=== PATIENT | female | born 1980 | race Caucasian/White ===

== ENCOUNTER 2024-07-07 21:15 | Inpatient (IN) | payer OTHER ==
[2024-07-07 21:46] VITALS: BMI 31.1
[2024-07-07 23:22] LABS: BASO % 0.6 % (0-2.0); EOS % 4.8 % (0-4.5); HEMATOCRIT 32.1 % (32.4-45.2); HEMOGLOBIN 10.8 GM/dL (10.7-15.3); LYMPH % 22.4 % (8-40); MCH 30.3 pg (25.7-33.7); MCHC 33.7 g/dl (32.0-36.0); MONO % 14.9 % (3.8-10.2); NEUT % 57.3 % (42.8-82.8); PLATELET COUNT 41 10^3/uL (134-434); RBC 3.57 M/mm3 (3.60-5.2); RDW 16.3 % (11.6-15.6)
[2024-07-07 23:31] LABS: WHITE BLOOD COUNT 1.7 K/mm3 (4.0-10.0)
[2024-07-07 23:40] LABS: POTASSIUM 4.1 mmol/L (3.5-5.1)
[2024-07-07 23:43] LABS: CALCIUM 8.3 mg/dL (8.5-10.1)
[2024-07-07 23:44] LABS: BLOOD UREA NITROGEN 14.6 mg/dL (7-18); MAGNESIUM 1.9 mg/dL (1.8-2.4)
[2024-07-07 23:47] LABS: CREATININE 0.6 mg/dL (0.55-1.3); PHOSPHOROUS 4.2 mg/dL (2.5-4.9)
[2024-07-07 23:52] LABS: N-TERMINAL BNP 84.1 pg/ml (5-125)
[2024-07-08 00:06] LABS: ANISOCYTOSIS 2+; MACROCYTOSIS 0; OVALOCYTE 1+; TEAR DROP CELLS 1+
[2024-07-08 00:38] LABS: EPI CELLS 10 /uL (0-25.1); HYALINE CASTS 0 /uL (0-3.1); URINE APPEARANCE CLEAR; URINE BACTERIA 82 /uL (0-1359); URINE BILIRUBIN NEGATIVE (NEGATIVE); URINE COLOR YELLOW; URINE GLUCOSE (UA) NEGATIVE (NEGATIVE); URINE KETONE NEGATIVE (NEGATIVE); URINE LEUK ESTERASE TRACE (NEGATIVE); URINE NITRITE NEGATIVE (NEGATIVE); URINE PROTEIN NEGATIVE (NEGATIVE); URINE RBC 7 /uL (0-23.9); URINE WBC 15 /uL (0-25.8)
[2024-07-08] MEDS ORDERED: PIPERACILLIN/TAZOB 3.375 GM 3.375 GM/50 ML BAG IVPB ONE ×2 (03:38→09:41)
[2024-07-08] MEDS ORDERED: VANCOMYCIN 1 GRAM (PRE-DOCKED) 1,000 MG/250 ML BAG IVPB ONE (03:38)
[2024-07-08] MEDS: PIPERACILLIN/TAZOB 3.375 GM 3.375 GM in DEXTROSE 5%-WATER - 50 ML IVPB SCH ×3 (04:00→23:11)
[2024-07-08] MEDS: VANCOMYCIN 1,000 MG in DEXTROSE 5%-WATER - 250 ML IVPB SCH ×2 (04:00→23:10)
[2024-07-08] MEDS ORDERED: PIPERACILLIN/TAZOB 3.375 GM 3.375 GM in DEXTROSE 5%-WATER - 50 ML IVPB SCH (05:00)
[2024-07-08] MEDS ORDERED: ACETAMINOPHEN INJECTION 100 ML IVPB ONE (05:25)
[2024-07-08] MEDS: SODIUM CHLORIDE 0.9% 500 ML INFUS.BAG IV ONE (05:31)
[2024-07-08] MEDS: morphine CARPU-JECT 4 MG/1 ML DISP.SYRIN IVPUSH ONE (05:31)
[2024-07-08] MEDS ORDERED: morphine SULFATE 4 MG/ML VIAL ONE (05:32)
[2024-07-08] MEDS: VANCOMYCIN/WATER FOR INJ (PEG) 1,000 MG/200 ML BAG IVPB SCH (06:13)
[2024-07-08] MEDS: VANCOMYCIN 1 GRAM (PRE-DOCKED) 1,000 MG/250 ML BAG IVPB SCH (06:25)
[2024-07-08] MEDS ORDERED: VANCOMYCIN/WATER FOR INJ (PEG) 1,000 MG/200 ML BAG IVPB SCH (10:00)
[2024-07-08] MEDS ORDERED: methaDONE HCL 40 MG DISPERSABLE TABLET ONE (10:34)
[2024-07-08] MEDS: methaDONE HCL 40 MG DISPERSABLE TABLET PO ONE (10:48)
[2024-07-08] MEDS: NICOTINE 7 MG/24 HOURS TOPICAL PATCH TD SCH (10:49)
[2024-07-08] MEDS ORDERED: CEFEPIME 1 GM in DEXTROSE 5%-WATER 100 ML IVPB SCH (12:10)
[2024-07-08 12:44] LABS: BASO % 0.5 % (0-2.0); EOS % 4.1 % (0-4.5); LYMPH % 15.3 % (8-40); MCH 29.9 pg (25.7-33.7); MCHC 33.4 g/dl (32.0-36.0); MEAN CELL VOLUME 89.3 fl (80-96); MEAN PLT VOLUME 9.7 fl (7.5-11.1); MONO % 10.6 % (3.8-10.2); NEUT % 69.5 % (42.8-82.8); RBC 3.37 M/mm3 (3.60-5.2); RDW 16.5 % (11.6-15.6)
[2024-07-08 12:53] LABS: INR 1.26 (0.83-1.09); PROTHROMBIN TIME (PATIENT) 14.1 SEC (9.7-13.0)
[2024-07-08 12:55] LABS: PLATELET COUNT 36 10^3/uL (134-434); WHITE BLOOD COUNT 1.8 K/mm3 (4.0-10.0)
[2024-07-08 13:02] LABS: POTASSIUM 3.8 mmol/L (3.5-5.1)
[2024-07-08 13:07] LABS: BLOOD UREA NITROGEN 11.6 mg/dL (7-18); CALCIUM 8.3 mg/dL (8.5-10.1)
[2024-07-08 13:08] LABS: ALBUMIN 2.6 g/dl (3.4-5.0); MAGNESIUM 1.9 mg/dL (1.8-2.4)
[2024-07-08 13:11] LABS: CREATININE 0.4 mg/dL (0.55-1.3); PHOSPHOROUS 4.5 mg/dL (2.5-4.9)
[2024-07-08 13:12] LABS: BILIRUBIN,TOTAL 1.3 mg/dL (0.2-1); TOT PROT 6.2 g/dl (6.4-8.2)
[2024-07-08 13:35] LABS: ERYTHROCYTE SEDIMENTATION RATE 25 mm/hr (0-20)
[2024-07-08 14:12] LABS: PLATELET ESTIMATE DECREASED
[2024-07-08] MEDS ORDERED: ALPRAZolam 2 MG TABLET PO SCH (14:45)
[2024-07-08] MEDS ORDERED: GABAPENTIN 400 MG CAPSULE ONE (14:59)
[2024-07-08] MEDS ORDERED: ALPRAZolam 1 MG TABLET ONE (14:59)
[2024-07-08] MEDS: ALPRAZolam 1 MG TABLET PO SCH (15:12)
[2024-07-08] MEDS: GABAPENTIN 400 MG CAPSULE PO SCH (15:12)
[2024-07-08 16:47] LABS: HIV INTERPRETATION NEGATIVE (NEGATIVE)
[2024-07-08] MEDS: NYSTATIN 100,000 UNIT/GM TOPICAL CREAM 15 GM TUBE TP SCH (18:05)
[2024-07-08] MEDS: ENOXAPARIN NA (PORCINE) 40 MG/0.4 ML DISP.SYRIN SQ SCH (22:00)
[2024-07-08] MEDS: CEFEPIME 1 GM in DEXTROSE 5%-WATER 100 ML IVPB SCH (22:28)
[2024-07-08] MEDS: CEFEPIME HCL 1 GM VIAL (RESTRICTED TO ID) IVPB SCH (23:11)
[2024-07-09] MEDS: VANCOMYCIN/WATER FOR INJ (PEG) 1,000 MG/200 ML BAG IVPB SCH (00:12)
[2024-07-09 09:56] LABS: HEMATOCRIT 27.6 % (32.4-45.2); HEMOGLOBIN 9.3 GM/dL (10.7-15.3); MCH 30.6 pg (25.7-33.7); MCHC 33.8 g/dl (32.0-36.0); MEAN CELL VOLUME 90.5 fl (80-96); MEAN PLT VOLUME 10.4 fl (7.5-11.1); RBC 3.05 M/mm3 (3.60-5.2); RDW 16.1 % (11.6-15.6)
[2024-07-09 10:09] LABS: PLATELET COUNT 35 10^3/uL (134-434); WHITE BLOOD COUNT 1.6 K/mm3 (4.0-10.0)
[2024-07-09 10:21] LABS: ANISOCYTOSIS 0; MACROCYTOSIS 0
[2024-07-09 10:36] LABS: PLATELET ESTIMATE DECREASED
[2024-07-09] MEDS: KETOCONAZOLE 2 % SHAMPOO 120 ML BOTTLE TP SCH (11:33)
[2024-07-09] MEDS: methaDONE HCL 40 MG DISPERSABLE TABLET PO ONE (11:34)
[2024-07-09] MEDS: PERMETHRIN (NIX CREAM SCALP RINSE) 59 ML 1% BOTTLE TP ONE (18:46)
[2024-07-10] MEDS: methaDONE HCL 40 MG DISPERSABLE TABLET PO SCH (05:19)
[2024-07-10 08:42] LABS: HEMATOCRIT 27.2 % (32.4-45.2); HEMOGLOBIN 9.1 GM/dL (10.7-15.3); INR 1.23 (0.83-1.09); MCH 30.2 pg (25.7-33.7); MCHC 33.6 g/dl (32.0-36.0); MEAN CELL VOLUME 89.9 fl (80-96); MEAN PLT VOLUME 10.1 fl (7.5-11.1); PLATELET COUNT 37 10^3/uL (134-434); PROTHROMBIN TIME (PATIENT) 13.8 SEC (9.7-13.0); RBC 3.03 M/mm3 (3.60-5.2); RDW 15.8 % (11.6-15.6)
[2024-07-10 08:55] LABS: WHITE BLOOD COUNT 1.3 K/mm3 (4.0-10.0)
[2024-07-10 09:02] LABS: POTASSIUM 3.9 mmol/L (3.5-5.1)
[2024-07-10 09:07] LABS: ALBUMIN 2.5 g/dl (3.4-5.0); BLOOD UREA NITROGEN 15.4 mg/dL (7-18); CALCIUM 7.6 mg/dL (8.5-10.1)
[2024-07-10 09:08] LABS: MAGNESIUM 1.9 mg/dL (1.8-2.4)
[2024-07-10 09:11] LABS: BILIRUBIN,TOTAL 0.8 mg/dL (0.2-1); CREATININE 0.5 mg/dL (0.55-1.3)
[2024-07-10 09:12] LABS: TOT PROT 5.9 g/dl (6.4-8.2)
[2024-07-10 09:44] LABS: ANISOCYTOSIS 0; MACROCYTOSIS 0
[2024-07-10 09:46] LABS: PLATELET ESTIMATE DECREASED
[2024-07-10 18:07] LABS: FREE KAPPA,SERUM 46.1 mg/L (3.3-19.4)
[2024-07-11 06:53] LABS: HEMATOCRIT 26.8 % (32.4-45.2); HEMOGLOBIN 9.1 GM/dL (10.7-15.3); MCH 30.8 pg (25.7-33.7); MCHC 33.9 g/dl (32.0-36.0); MEAN CELL VOLUME 90.7 fl (80-96); MEAN PLT VOLUME 9.3 fl (7.5-11.1); RBC 2.95 M/mm3 (3.60-5.2); RDW 15.8 % (11.6-15.6)
[2024-07-11 07:04] LABS: POTASSIUM 3.6 mmol/L (3.5-5.1)
[2024-07-11 07:07] LABS: CALCIUM 7.8 mg/dL (8.5-10.1)
[2024-07-11 07:08] LABS: ALBUMIN 2.6 g/dl (3.4-5.0); BLOOD UREA NITROGEN 13.7 mg/dL (7-18); MAGNESIUM 1.9 mg/dL (1.8-2.4)
[2024-07-11 07:11] LABS: CREATININE 0.4 mg/dL (0.55-1.3)
[2024-07-11 07:12] LABS: BILIRUBIN,TOTAL 0.8 mg/dL (0.2-1); TOT PROT 6.1 g/dl (6.4-8.2)
[2024-07-11 07:17] LABS: WHITE BLOOD COUNT 1.4 K/mm3 (4.0-10.0)
[2024-07-11 07:18] LABS: PLATELET COUNT 36 10^3/uL (134-434)
[2024-07-11 08:55] LABS: ANISOCYTOSIS 0; MACROCYTOSIS 0
[2024-07-12 08:52] LABS: HEMOGLOBIN 9.8 GM/dL (10.7-15.3); MCH 30.4 pg (25.7-33.7); MCHC 33.7 g/dl (32.0-36.0); MEAN CELL VOLUME 90.2 fl (80-96); MEAN PLT VOLUME 9.7 fl (7.5-11.1); PLATELET COUNT 42 10^3/uL (134-434); RBC 3.21 M/mm3 (3.60-5.2); RDW 16.1 % (11.6-15.6)
[2024-07-12 09:02] LABS: WHITE BLOOD COUNT 1.7 K/mm3 (4.0-10.0)
[2024-07-12 09:12] LABS: POTASSIUM 3.7 mmol/L (3.5-5.1)
[2024-07-12 09:14] LABS: ALBUMIN 2.8 g/dl (3.4-5.0)
[2024-07-12 09:15] LABS: BLOOD UREA NITROGEN 11.6 mg/dL (7-18); CALCIUM 8.1 mg/dL (8.5-10.1); MAGNESIUM 1.9 mg/dL (1.8-2.4)
[2024-07-12 09:18] LABS: CREATININE 0.4 mg/dL (0.55-1.3)
[2024-07-12 09:20] LABS: TOT PROT 6.6 g/dl (6.4-8.2)
[2024-07-12 09:50] LABS: ANISOCYTOSIS 0; HELMET CELLS 0; HOWELL-JOLLY BODIES 0; MACROCYTOSIS 0; OVALOCYTE 0; ROULEAU 0; SICKELED CELLS 0; TARGET CELLS 0; TEAR DROP CELLS 0; TOXIC GRANULATION 0
[2024-07-13 09:19] LABS: BASO % 0.1 % (0-2.0); EOS % 3.4 % (0-4.5); HEMATOCRIT 30.1 % (32.4-45.2); HEMOGLOBIN 10.1 GM/dL (10.7-15.3); LYMPH % 16.5 % (8-40); MCH 30.2 pg (25.7-33.7); MCHC 33.5 g/dl (32.0-36.0); MEAN CELL VOLUME 90.2 fl (80-96); MEAN PLT VOLUME 10.2 fl (7.5-11.1); MONO % 10.6 % (3.8-10.2); NEUT % 69.4 % (42.8-82.8); PLATELET COUNT 44 10^3/uL (134-434); RBC 3.34 M/mm3 (3.60-5.2); RDW 16.4 % (11.6-15.6); WHITE BLOOD COUNT 2.4 K/mm3 (4.0-10.0)
[2024-07-13 09:40] LABS: POTASSIUM 3.6 mmol/L (3.5-5.1)
[2024-07-13 09:44] LABS: ALBUMIN 2.9 g/dl (3.4-5.0); BLOOD UREA NITROGEN 11.4 mg/dL (7-18)
[2024-07-13 09:45] LABS: CALCIUM 8.1 mg/dL (8.5-10.1)
[2024-07-13 09:48] LABS: CREATININE 0.4 mg/dL (0.55-1.3)
[2024-07-13 09:49] LABS: BILIRUBIN,TOTAL 1.5 mg/dL (0.2-1); TOT PROT 6.7 g/dl (6.4-8.2)
[2024-07-13] MEDS: ALPRAZolam 1 MG TABLET PO SCH ×2 (15:15→21:25)
[2024-07-13 18:11] LABS: IG A QN SERUM. 272 mg/dL (87-352)
[2024-07-14] MEDS: ALPRAZolam 1 MG TABLET PO SCH (13:42)
[2024-07-14 15:09] LABS: IMMUNOGLOBULIN D < 1.30 mg/dL (<14.11)
[2024-07-15 08:28] LABS: HEMATOCRIT 26.1 % (32.4-45.2); MCH 30.5 pg (25.7-33.7); MCHC 34.4 g/dl (32.0-36.0); MEAN CELL VOLUME 88.6 fl (80-96); MEAN PLT VOLUME 9.6 fl (7.5-11.1); RBC 2.95 M/mm3 (3.60-5.2)
[2024-07-15 08:51] LABS: POTASSIUM 3.9 mmol/L (3.5-5.1)
[2024-07-15 08:53] LABS: BLOOD UREA NITROGEN 11.2 mg/dL (7-18)
[2024-07-15 08:55] LABS: CREATININE 0.5 mg/dL (0.55-1.3)
[2024-07-15 09:16] LABS: WHITE BLOOD COUNT 1.5 K/mm3 (4.0-10.0)
[2024-07-15 09:17] LABS: PLATELET COUNT 36 10^3/uL (134-434)
[2024-07-15 10:08] LABS: PLATELET ESTIMATE DECREASED
[2024-07-15] MEDS: FAMOTIDINE 10 MG TABLET PO SCH (17:18)
[2024-07-15] MEDS: HYDROCORTISONE 5 MG TABLET PO SCH (22:15)
[2024-07-16 09:23] LABS: POTASSIUM 4.2 mmol/L (3.5-5.1)
[2024-07-16 09:25] LABS: CALCIUM 8.1 mg/dL (8.5-10.1)
[2024-07-16 09:26] LABS: ALBUMIN 2.8 g/dl (3.4-5.0); BLOOD UREA NITROGEN 12.4 mg/dL (7-18)
[2024-07-16 09:29] LABS: CREATININE 0.5 mg/dL (0.55-1.3); HEMATOCRIT 28.3 % (32.4-45.2); HEMOGLOBIN 9.5 GM/dL (10.7-15.3); MCHC 33.4 g/dl (32.0-36.0); MEAN CELL VOLUME 89.8 fl (80-96); MEAN PLT VOLUME 10.1 fl (7.5-11.1); PLATELET COUNT 38 10^3/uL (134-434); RBC 3.15 M/mm3 (3.60-5.2); RDW 16.3 % (11.6-15.6)
[2024-07-16 09:30] LABS: BILIRUBIN,TOTAL 1.2 mg/dL (0.2-1); TOT PROT 6.8 g/dl (6.4-8.2)
[2024-07-16 09:34] LABS: WHITE BLOOD COUNT 1.8 K/mm3 (4.0-10.0)
[2024-07-16] MEDS: HYDROCORTISONE 10 MG TABLET PO SCH (10:28)
[2024-07-16 11:02] LABS: ANISOCYTOSIS 0; HELMET CELLS 0; HOWELL-JOLLY BODIES 0; MACROCYTOSIS 0; OVALOCYTE 0; ROULEAU 0; SICKELED CELLS 0; TARGET CELLS 0; TEAR DROP CELLS 0; TOXIC GRANULATION 0
[2024-07-16] MEDS: GABAPENTIN 400 MG CAPSULE PO SCH (21:29)
[2024-07-17 06:54] VITALS: RESP 18
[2024-07-17 10:00] VITALS: BP 116/66; PULSE 75; TEMP 98.1
[2024-07-17] MEDS: PERMETHRIN (NIX CREAM SCALP RINSE) 59 ML 1% BOTTLE TP ONE (14:14)
[2024-07-17] MEDS: FUROSEMIDE 20 MG TABLET (FP) PO SCH (14:14)
== END 2024-07-17 16:33 | disposition other institution (70) | DRG 660 ==
LOC: JER 21:15 → JERBED 07-08 00:21 → J7W 07-08 18:19
PROVIDERS: ADMIT Internal Medicine; ATTEND Nurse Practitioner
DX: D61.818 Other pancytopenia (principal); B37.89 Other sites of candidiasis; L97.919 Non-pressure chronic ulcer of unspecified part of right lower leg with unspecified severity; L97.929 Non-pressure chronic ulcer of unspecified part of left lower leg with unspecified severity; F11.20 Opioid dependence, uncomplicated; E27.40 Unspecified adrenocortical insufficiency; B18.2 Chronic viral hepatitis C; K74.60 Unspecified cirrhosis of liver; B85.0 Pediculosis due to Pediculus humanus capitis; R16.1 Splenomegaly, not elsewhere classified; R79.89 Other specified abnormal findings of blood chemistry; F19.10 Other psychoactive substance abuse, uncomplicated; I87.8 Other specified disorders of veins
CPT/HCPCS: 0241U-QW; 36415; 71046-TC-FY; 76705-TC; 80048; 80053; 80305; 81003; 81025; 82595; 82784; 82785; 83735; 83880; 83883; 84100; 84155; 84165; 84484; 85025; 85610; 85651; 86140; 86334; 86618; 86704; 86708; 86803; 87040; 87340; 87389; 87517; 87522; 93005; 93010; 93970-TC; 99285-25; G0480

== ENCOUNTER 2024-07-17 18:46 | Inpatient (IN) | payer OTHER ==
[2024-07-17 19:45] VITALS: BMI 33.6
[2024-07-17] MEDS ORDERED: BENZOCAINE/MENTHOL (CHLORASEPTIC ) LOZENGE MM PRN (19:48)
[2024-07-17] MEDS ORDERED: NALOXONE HCL 0.4 MG/ML VIAL IVPUSH PRN (19:48)
[2024-07-17] MEDS ORDERED: POLYETHYLENE GLYCOL (HEALTHYLAX) 3350 17 GM PACKET PO PRN (19:48)
[2024-07-17] MEDS ORDERED: P-EPHED 60MG/TRIPROLIDI 2.5MG TABLET PO PRN (19:48)
[2024-07-17] MEDS ORDERED: BENZONATATE 200 MG CAPSULE PO PRN (19:48)
[2024-07-17] MEDS ORDERED: LOPERAMIDE HCL 2 MG CAPSULE PO PRN (19:48)
[2024-07-17] MEDS ORDERED: NICOTINE POLACRILEX 2 MG GUM BUC PRN (19:48)
[2024-07-17] MEDS ORDERED: guaiFENesin 600 MG TABLET.ER (FP) PO PRN (19:48)
[2024-07-17] MEDS ORDERED: NALOXONE (NARCAN) HCL 4 MG/0.1 ML SPRAY NS PRN (19:48)
[2024-07-17] MEDS ORDERED: NICOTINE POLACRILEX 2 MG LOZENGE BC PRN (19:48)
[2024-07-17] MEDS ORDERED: MAG HYDROX/AL HYDROX/SIMETH 30 ML UNIT-DOSE CUP PO PRN (19:48)
[2024-07-17] MEDS: levETIRAcetam 500 MG TABLET (FP) PO SCH (21:02)
[2024-07-17] MEDS: THIAMINE 100 MG TABLET PO SCH (21:02)
[2024-07-17] MEDS: MELATONIN 5 MG TABLETS PO SCH (21:02)
[2024-07-17] MEDS: NYSTATIN 100,000 UNIT/GM TOPICAL CREAM 15 GM TUBE TP SCH (23:43)
[2024-07-18] MEDS: methaDONE HCL 40 MG DISPERSABLE TABLET PO SCH (10:00)
[2024-07-18] MEDS: PRENATAL VITAMINS W/ FOLIC ACID TABLET (FP) PO SCH (10:00)
[2024-07-18] MEDS: FAMOTIDINE 10 MG TABLET PO SCH (11:01)
[2024-07-18] MEDS: HYDROCORTISONE 10 MG TABLET PO SCH (11:01)
[2024-07-18] MEDS: clonazePAM 1 MG ODT TABLETS SL SCH (13:29)
[2024-07-18] MEDS: HYDROCORTISONE 5 MG TABLET PO SCH (18:46)
[2024-07-20 11:02] LABS: HEMATOCRIT 27.1 % (32.4-45.2); MCH 30.1 pg (25.7-33.7); MCHC 33.1 g/dl (32.0-36.0); MEAN CELL VOLUME 90.8 fl (80-96); MEAN PLT VOLUME 10.3 fl (7.5-11.1); PLATELET COUNT 41 10^3/uL (134-434); RBC 2.99 M/mm3 (3.60-5.2)
[2024-07-20 11:06] LABS: POTASSIUM 4.1 mmol/L (3.5-5.1)
[2024-07-20 11:08] LABS: CALCIUM 8.3 mg/dL (8.5-10.1)
[2024-07-20 11:09] LABS: BLOOD UREA NITROGEN 10.6 mg/dL (7-18)
[2024-07-20 11:12] LABS: CREATININE 0.5 mg/dL (0.55-1.3)
[2024-07-20 11:15] LABS: WHITE BLOOD COUNT 1.9 K/mm3 (4.0-10.0)
[2024-07-20 11:53] LABS: ANISOCYTOSIS 0; MACROCYTOSIS 0
[2024-07-20] MEDS ORDERED: FUROSEMIDE 20 MG TABLET (FP) PO SCH (15:45)
[2024-07-20] MEDS ORDERED: SPIRONOLACTONE 100 MG PO SCH (15:45)
[2024-07-20] MEDS: FUROSEMIDE 20 MG TABLET (FP) PO SCH (16:03)
[2024-07-20] MEDS: SPIRONOLACTONE 25 MG TABLET PO SCH (16:06)
[2024-07-21] MEDS ORDERED: IBUPROFEN 400 MG TABLET (FP) PO PRN (15:55)
[2024-07-21] MEDS: MINERAL OIL/PET HY-PHL TOPICAL OINTMENT 454 GM JAR TP SCH (17:44)
[2024-07-21] MEDS: METHYL SALICYLATE/MENTHOL 30 GM TUBE TP SCH (17:44)
[2024-07-22] MEDS: PERMETHRIN (NIX CREAM SCALP RINSE) 59 ML 1% BOTTLE TP ONE (09:58)
[2024-07-22 11:22] LABS: INR 1.37 (0.83-1.09); PROTHROMBIN TIME (PATIENT) 15.3 SEC (9.7-13.0)
[2024-07-24] MEDS: HYDROCORTISONE 5 MG TABLET PO SCH (10:08)
[2024-07-24] MEDS: MAGNESIUM HYDROX 2400MG/30ML ORAL SUSPENSION 30 ML CUP PO PRN (18:52)
[2024-07-28] MEDS: IBUPROFEN 400 MG TABLET (FP) PO PRN (07:11)
[2024-07-28 11:35] LABS: BASO % 0.5 % (0-2.0); EOS % 4.5 % (0-4.5); HEMOGLOBIN 11.4 GM/dL (10.7-15.3); LYMPH % 15.5 % (8-40); MCH 30.2 pg (25.7-33.7); MCHC 33.7 g/dl (32.0-36.0); MEAN CELL VOLUME 89.8 fl (80-96); MEAN PLT VOLUME 10.1 fl (7.5-11.1); MONO % 10.3 % (3.8-10.2); NEUT % 69.2 % (42.8-82.8); PLATELET COUNT 56 10^3/uL (134-434); RBC 3.79 M/mm3 (3.60-5.2); RDW 16.1 % (11.6-15.6); WHITE BLOOD COUNT 3.1 K/mm3 (4.0-10.0)
[2024-07-28 11:38] LABS: POTASSIUM 4.1 mmol/L (3.5-5.1)
[2024-07-28 11:49] LABS: ALBUMIN 3.1 g/dl (3.4-5.0); BLOOD UREA NITROGEN 15.5 mg/dL (7-18)
[2024-07-28 11:50] LABS: CALCIUM 8.2 mg/dL (8.5-10.1)
[2024-07-28 11:53] LABS: CREATININE 0.6 mg/dL (0.55-1.3)
[2024-07-28 11:55] LABS: BILIRUBIN,TOTAL 1.1 mg/dL (0.2-1); TOT PROT 7.1 g/dl (6.4-8.2)
[2024-07-28] MEDS: SUVOREXANT 10 MG TABLET PO PRN (21:40)
[2024-07-30] MEDS: clonazePAM 0.5 MG ODT TABLETS SL SCH (10:22)
[2024-07-30 16:38] VITALS: BP 123/73; PULSE 94; RESP 16; TEMP 97.5
== END 2024-07-30 16:40 | disposition short-term general hospital (02) | DRG 772 ==
LOC: YASAS 18:46 → Y5N 20:09 → Y3NR 23:11 → Y5N 07-20 13:19
PROVIDERS: ADMIT Psychiatry & Neurology Pain Medicine; ATTEND Psychiatry & Neurology Pain Medicine
PROC: HZ42ZZZ Group Counseling for Substance Abuse Treatment, Cognitive-Behavioral (ICD-10-PCS; principal; 2024-07-17)
DX: F11.20 Opioid dependence, uncomplicated (principal); F13.20 Sedative, hypnotic or anxiolytic dependence, uncomplicated; F14.20 Cocaine dependence, uncomplicated; F19.282 Other psychoactive substance dependence with psychoactive substance-induced sleep disorder; F19.280 Other psychoactive substance dependence with psychoactive substance-induced anxiety disorder; F19.24 Other psychoactive substance dependence with psychoactive substance-induced mood disorder; I83.009 Varicose veins of unspecified lower extremity with ulcer of unspecified site; D61.818 Other pancytopenia; E27.40 Unspecified adrenocortical insufficiency; L03.116 Cellulitis of left lower limb; B35.0 Tinea barbae and tinea capitis; Z62.810 Personal history of physical and sexual abuse in childhood; Z63.8 Other specified problems related to primary support group
CPT/HCPCS: 36415; 80048; 80053; 80305; 80307; 82652; 83735; 85025; 85610; 87811

== ENCOUNTER 2024-07-30 17:06 | Inpatient (IN) | payer OTHER ==
[2024-07-30 17:17] VITALS: BMI 29.2
[2024-07-30] MEDS ORDERED: VANCOMYCIN 1 GRAM (PRE-DOCKED) 1,000 MG/250 ML BAG IVPB ONE (19:57)
[2024-07-30] MEDS ORDERED: morphine SULFATE 4 MG/ML VIAL ONE ×2 (20:49→22:00)
[2024-07-30] MEDS ORDERED: ACETAMINOPHEN INJECTION 100 ML ONE (20:49)
[2024-07-30] MEDS ORDERED: CEFEPIME 1 GM/100 ML BAG IVPB ONE (20:50)
[2024-07-30] MEDS: morphine CARPU-JECT 4 MG/1 ML DISP.SYRIN IVPUSH ONE ×2 (21:21→22:03)
[2024-07-30] MEDS: VANCOMYCIN 1,000 MG in DEXTROSE 5%-WATER - 250 ML IVPB ONE (21:22)
[2024-07-30] MEDS: SODIUM CHLORIDE 1,000 ML IV STA (21:22)
[2024-07-30] MEDS: ACETAMINOPHEN 1000 MG/100 ML BAG IVPB ONE (21:22)
[2024-07-30 21:40] LABS: HEMATOCRIT 34.3 % (32.4-45.2); HEMOGLOBIN 11.5 GM/dL (10.7-15.3); MCH 29.8 pg (25.7-33.7); MCHC 33.6 g/dl (32.0-36.0); MEAN CELL VOLUME 88.8 fl (80-96); RBC 3.87 M/mm3 (3.60-5.2); RDW 16.3 % (11.6-15.6)
[2024-07-30 21:41] LABS: POTASSIUM 3.8 mmol/L (3.5-5.1)
[2024-07-30 21:43] LABS: ALBUMIN 2.7 g/dl (3.4-5.0); BLOOD UREA NITROGEN 23.8 mg/dL (7-18); CALCIUM 8.2 mg/dL (8.5-10.1); MAGNESIUM 1.8 mg/dL (1.8-2.4)
[2024-07-30 21:46] LABS: CREATININE 0.7 mg/dL (0.55-1.3)
[2024-07-30 21:48] LABS: TOT PROT 6.5 g/dl (6.4-8.2)
[2024-07-30 21:51] LABS: WHITE BLOOD COUNT 1.6 K/mm3 (4.0-10.0)
[2024-07-30 21:57] LABS: BILIRUBIN,TOTAL 3.3 mg/dL (0.2-1)
[2024-07-30 22:34] LABS: ERYTHROCYTE SEDIMENTATION RATE 33 mm/hr (0-20)
[2024-07-30 22:35] LABS: PLATELET COUNT 35 10^3/uL (134-434)
[2024-07-30 22:36] LABS: HIV INTERPRETATION NEGATIVE (NEGATIVE)
[2024-07-30 22:47] LABS: ANISOCYTOSIS 1+; MACROCYTOSIS 0
[2024-07-30] MEDS: CEFEPIME HCL/D5W 1 GM/50 ML BAG IVPB ONE (22:59)
[2024-07-31] MEDS ORDERED: IBUPROFEN 400 MG TABLET (FP) PO ONE (02:34)
[2024-07-31] MEDS ORDERED: KETOROLAC TROMETHAMINE 15 MG/ML VIAL ONE (02:40)
[2024-07-31] MEDS: KETOROLAC TROMETHAMINE 15 MG/ML VIAL IVPUSH ONE (02:43)
[2024-07-31] MEDS: SODIUM CHLORIDE 1,000 ML IV SCH ×4 (07:25→21:59)
[2024-07-31] MEDS ORDERED: VANCOMYCIN 1,000 MG in DEXTROSE 5%-WATER - 250 ML IVPB SCH (08:30)
[2024-07-31] MEDS ORDERED: methaDONE HCL 40 MG DISPERSABLE TABLET ONE (08:30)
[2024-07-31] MEDS: methaDONE HCL 10 MG TABLET PO ONE (08:34)
[2024-07-31] MEDS ORDERED: VANCOMYCIN 1 GRAM (PRE-DOCKED) 1,000 MG/250 ML BAG IVPB ONE (08:36)
[2024-07-31] MEDS: VANCOMYCIN/WATER FOR INJ (PEG) 1,000 MG/200 ML BAG IVPB SCH (09:02)
[2024-07-31] MEDS: HYDROCORTISONE 10 MG TABLET PO SCH ×2 (11:42→23:50)
[2024-07-31 12:21] LABS: HEMATOCRIT 32.9 % (32.4-45.2); MCH 29.7 pg (25.7-33.7); MCHC 33.6 g/dl (32.0-36.0); MEAN CELL VOLUME 88.4 fl (80-96); MEAN PLT VOLUME 9.7 fl (7.5-11.1); RBC 3.72 M/mm3 (3.60-5.2); RDW 16.8 % (11.6-15.6); WHITE BLOOD COUNT 3.3 K/mm3 (4.0-10.0)
[2024-07-31 12:24] LABS: PLATELET COUNT 31 10^3/uL (134-434)
[2024-07-31 12:45] LABS: POTASSIUM 4.4 mmol/L (3.5-5.1)
[2024-07-31 12:48] LABS: ALBUMIN 2.3 g/dl (3.4-5.0); BLOOD UREA NITROGEN 26.1 mg/dL (7-18)
[2024-07-31 12:51] LABS: CREATININE 0.8 mg/dL (0.55-1.3)
[2024-07-31 12:53] LABS: ANISOCYTOSIS 0; BILIRUBIN,TOTAL 2.7 mg/dL (0.2-1); MACROCYTOSIS 0; TOT PROT 5.7 g/dl (6.4-8.2)
[2024-07-31 13:01] LABS: LACTIC ACID 4.5 mmol/L (0.4-2.0)
[2024-07-31 15:27] LABS: BILIRUBIN,DIRECT 1.9 mg/dL (0.0-0.2)
[2024-07-31] MEDS: SODIUM CHLORIDE 500 ML IV STA (16:28)
[2024-07-31] MEDS: CEFEPIME 1 GM in DEXTROSE 5%-WATER 100 ML IVPB SCH (16:28)
[2024-07-31] MEDS: ACETAMINOPHEN 325 MG TABLET (FP) PO PRN (17:55)
[2024-07-31] MEDS ORDERED: CEFEPIME HCL 1 GM VIAL (RESTRICTED TO ID) IVPB SCH (18:00)
[2024-07-31 20:04] LABS: PH,URINE 5.5 (5.0-8.0); URINE APPEARANCE CLOUDY; URINE BILIRUBIN 1+ (NEGATIVE); URINE COLOR DK YELLOW; URINE GLUCOSE (UA) NEGATIVE (NEGATIVE); URINE KETONE NEGATIVE (NEGATIVE); URINE LEUK ESTERASE NEGATIVE (NEGATIVE); URINE NITRITE NEGATIVE (NEGATIVE); URINE PROTEIN TRACE (NEGATIVE)
[2024-07-31] MEDS: RIFAXIMIN 550 MG TABLET PO SCH (21:58)
[2024-07-31] MEDS: clonazePAM 0.5 MG TABLET PO SCH (21:58)
[2024-07-31] MEDS: ZOLPIDEM TARTRATE 5 MG TABLET PO SCH (21:59)
[2024-08-01] MEDS: CEFEPIME HCL 1 GM VIAL (RESTRICTED TO ID) IVPB SCH (01:00)
[2024-08-01] MEDS: methaDONE HCL 40 MG DISPERSABLE TABLET PO SCH (06:15)
[2024-08-01] MEDS: SERTRALINE HCL 50 MG TABLET (FP) PO SCH (09:15)
[2024-08-01] MEDS: VANCOMYCIN/WATER FOR INJ (PEG) 1,000 MG/200 ML BAG IVPB SCH (09:16)
[2024-08-01 10:31] LABS: INR 1.37 (0.83-1.09); PROTHROMBIN TIME (PATIENT) 15.3 SEC (9.7-13.0)
[2024-08-01 10:45] LABS: CALCIUM 7.6 mg/dL (8.5-10.1)
[2024-08-01 10:46] LABS: BLOOD UREA NITROGEN 21.8 mg/dL (7-18)
[2024-08-01 10:49] LABS: CREATININE 0.5 mg/dL (0.55-1.3); LACTIC ACID 2.9 mmol/L (0.4-2.0)
[2024-08-01 10:50] LABS: BILIRUBIN,TOTAL 2.5 mg/dL (0.2-1); TOT PROT 5.3 g/dl (6.4-8.2)
[2024-08-01 10:53] LABS: HEMATOCRIT 30.4 % (32.4-45.2); HEMOGLOBIN 10.3 GM/dL (10.7-15.3); MCHC 33.8 g/dl (32.0-36.0); MEAN CELL VOLUME 88.8 fl (80-96); MEAN PLT VOLUME 10.9 fl (7.5-11.1); PLATELET COUNT 39 10^3/uL (134-434); RBC 3.42 M/mm3 (3.60-5.2); RDW 16.1 % (11.6-15.6); WHITE BLOOD COUNT 4.8 K/mm3 (4.0-10.0)
[2024-08-01 12:14] LABS: ANISOCYTOSIS 0; MACROCYTOSIS 0
[2024-08-01] MEDS: PERMETHRIN 5% TOPICAL CREAM 60 GM TUBE TP ONE (12:22)
[2024-08-01 13:09] LABS: LACTIC ACID 2.2 mmol/L (0.4-2.0)
[2024-08-01] MEDS: CLINDAMYCIN 900 MG PREMIX IVPB 900 MG/50 ML BAG IVPB SCH (19:04)
[2024-08-02] MEDS: MEROPENEM 1 GM in DEXTROSE 5%-WATER 100 ML IVPB SCH (01:13)
[2024-08-02 09:12] LABS: HEMATOCRIT 31.8 % (32.4-45.2); HEMOGLOBIN 10.7 GM/dL (10.7-15.3); MCH 29.2 pg (25.7-33.7); MCHC 33.7 g/dl (32.0-36.0); MEAN CELL VOLUME 86.7 fl (80-96); MEAN PLT VOLUME 10.4 fl (7.5-11.1); PLATELET COUNT 42 10^3/uL (134-434); RBC 3.67 M/mm3 (3.60-5.2); RDW 16.2 % (11.6-15.6); WHITE BLOOD COUNT 9.8 K/mm3 (4.0-10.0)
[2024-08-02 09:34] LABS: CALCIUM 7.4 mg/dL (8.5-10.1)
[2024-08-02 09:35] LABS: ALBUMIN 2.2 g/dl (3.4-5.0)
[2024-08-02 09:38] LABS: CREATININE 0.4 mg/dL (0.55-1.3)
[2024-08-02 09:39] LABS: BILIRUBIN,TOTAL 2.2 mg/dL (0.2-1); TOT PROT 5.5 g/dl (6.4-8.2)
[2024-08-02 10:46] LABS: ANISOCYTOSIS 0; MACROCYTOSIS 0
[2024-08-03 10:30] LABS: HEMATOCRIT 33.2 % (32.4-45.2); HEMOGLOBIN 11.1 GM/dL (10.7-15.3); MCHC 33.4 g/dl (32.0-36.0); MEAN CELL VOLUME 86.8 fl (80-96); MEAN PLT VOLUME 10.4 fl (7.5-11.1); PLATELET COUNT 47 10^3/uL (134-434); RBC 3.83 M/mm3 (3.60-5.2); RDW 16.1 % (11.6-15.6); WHITE BLOOD COUNT 14.1 K/mm3 (4.0-10.0)
[2024-08-03 10:44] LABS: POTASSIUM 3.5 mmol/L (3.5-5.1)
[2024-08-03 10:49] LABS: ALBUMIN 2.2 g/dl (3.4-5.0); BLOOD UREA NITROGEN 11.7 mg/dL (7-18); CALCIUM 7.6 mg/dL (8.5-10.1)
[2024-08-03 10:52] LABS: CREATININE 0.4 mg/dL (0.55-1.3)
[2024-08-03 10:54] LABS: BILIRUBIN,TOTAL 2.1 mg/dL (0.2-1); TOT PROT 5.7 g/dl (6.4-8.2)
[2024-08-03 11:56] LABS: ANISOCYTOSIS 0; MACROCYTOSIS 0
[2024-08-03] MEDS: FUROSEMIDE 40 MG/4 ML INJECTABLE VIAL IVPUSH ONE (17:15)
[2024-08-04] MEDS: TORSEMIDE 20 MG TABLET (FP) PO SCH (15:37)
[2024-08-04] MEDS: POTASSIUM CHLORIDE ORAL LIQUID 20 MEQ/15 ML PO ONE (15:38)
[2024-08-04] MEDS: BACITRACIN ZINC 15 GM TUBE TOPICAL OINTMENT TP SCH (15:38)
[2024-08-05] MEDS: POTASSIUM CHLORIDE ORAL LIQUID 20 MEQ/15 ML PO ONE (13:54)
[2024-08-05] MEDS: FUROSEMIDE 40 MG/4 ML INJECTABLE VIAL IVPUSH ONE (13:54)
[2024-08-06 09:59] LABS: HEMATOCRIT 30.4 % (32.4-45.2); HEMOGLOBIN 10.1 GM/dL (10.7-15.3); MCH 28.8 pg (25.7-33.7); MCHC 33.4 g/dl (32.0-36.0); MEAN CELL VOLUME 86.3 fl (80-96); MEAN PLT VOLUME 10.1 fl (7.5-11.1); PLATELET COUNT 71 10^3/uL (134-434); RBC 3.52 M/mm3 (3.60-5.2); RDW 16.3 % (11.6-15.6); WHITE BLOOD COUNT 6.9 K/mm3 (4.0-10.0)
[2024-08-06 10:24] LABS: POTASSIUM 3.1 mmol/L (3.5-5.1)
[2024-08-06 10:31] LABS: ALBUMIN 2.2 g/dl (3.4-5.0); CALCIUM 7.6 mg/dL (8.5-10.1)
[2024-08-06 10:33] LABS: BLOOD UREA NITROGEN 17.4 mg/dL (7-18); MAGNESIUM 1.7 mg/dL (1.8-2.4)
[2024-08-06 10:35] LABS: BILIRUBIN,TOTAL 1.5 mg/dL (0.2-1); CREATININE 0.4 mg/dL (0.55-1.3); TOT PROT 6.1 g/dl (6.4-8.2)
[2024-08-06 10:54] LABS: ANISOCYTOSIS 0; MACROCYTOSIS 0
[2024-08-06] MEDS: SIMETHICONE 80 MG TAB.CHEW (FP) PO PRN (17:15)
[2024-08-06] MEDS: POTASSIUM CHLORIDE TABS 20 MEQ TABLET.ER (FP) PO ONE (17:17)
[2024-08-06] MEDS: MAGNESIUM OXIDE 400 MG TABLET (FP) PO ONE (17:19)
[2024-08-06] MEDS: POTASSIUM CHLORIDE ORAL LIQUID 20 MEQ/15 ML PO ONE (18:00)
[2024-08-06] MEDS: MICONAZOLE NITRATE 2% VAGINAL CREAM 45 GM TUBE VG SCH (21:35)
[2024-08-07 10:10] LABS: BASO % 0.3 % (0-2.0); EOS % 2.5 % (0-4.5); HEMOGLOBIN 9.9 GM/dL (10.7-15.3); LYMPH % 13.8 % (8-40); MCHC 33.1 g/dl (32.0-36.0); MEAN CELL VOLUME 87.5 fl (80-96); MEAN PLT VOLUME 9.9 fl (7.5-11.1); NEUT % 70.4 % (42.8-82.8); PLATELET COUNT 72 10^3/uL (134-434); RBC 3.43 M/mm3 (3.60-5.2); RDW 16.9 % (11.6-15.6)
[2024-08-07 10:47] LABS: MAGNESIUM 2.2 mg/dL (1.8-2.4)
[2024-08-07 15:24] VITALS: RESP 18
[2024-08-07 15:42] LABS: POTASSIUM 3.5 mmol/L (3.5-5.1)
[2024-08-07 15:44] LABS: ALBUMIN 2.3 g/dl (3.4-5.0); CALCIUM 7.7 mg/dL (8.5-10.1)
[2024-08-07 15:45] LABS: BLOOD UREA NITROGEN 14.3 mg/dL (7-18)
[2024-08-07 15:48] LABS: CREATININE 0.4 mg/dL (0.55-1.3)
[2024-08-07 15:49] LABS: BILIRUBIN,TOTAL 1.9 mg/dL (0.2-1); TOT PROT 6.4 g/dl (6.4-8.2)
[2024-08-08 08:57] LABS: BASO % 0.5 % (0-2.0); EOS % 1.5 % (0-4.5); HEMATOCRIT 28.5 % (32.4-45.2); HEMOGLOBIN 9.4 GM/dL (10.7-15.3); LYMPH % 17.9 % (8-40); MCH 29.2 pg (25.7-33.7); MCHC 33.1 g/dl (32.0-36.0); MEAN CELL VOLUME 88.3 fl (80-96); MEAN PLT VOLUME 10.1 fl (7.5-11.1); MONO % 11.4 % (3.8-10.2); NEUT % 68.7 % (42.8-82.8); PLATELET COUNT 63 10^3/uL (134-434); RBC 3.23 M/mm3 (3.60-5.2); RDW 16.5 % (11.6-15.6); WHITE BLOOD COUNT 3.3 K/mm3 (4.0-10.0)
[2024-08-08] MEDS: MAG HYDROX/AL HYDROX/SIMETH 30 ML UNIT-DOSE CUP PO PRN (13:41)
[2024-08-09] MEDS: VANCOMYCIN PREMIX 1.5 GM 1,500 MG/300 ML BAG IVPB SCH (05:24)
[2024-08-09 09:53] LABS: BASO % 0.2 % (0-2.0); EOS % 1.9 % (0-4.5); HEMATOCRIT 27.1 % (32.4-45.2); LYMPH % 15.8 % (8-40); MCH 29.3 pg (25.7-33.7); MCHC 33.4 g/dl (32.0-36.0); MEAN CELL VOLUME 87.9 fl (80-96); MEAN PLT VOLUME 10.2 fl (7.5-11.1); MONO % 10.4 % (3.8-10.2); NEUT % 71.7 % (42.8-82.8); PLATELET COUNT 68 10^3/uL (134-434); RBC 3.08 M/mm3 (3.60-5.2); RDW 16.3 % (11.6-15.6); WHITE BLOOD COUNT 2.9 K/mm3 (4.0-10.0)
[2024-08-09] MEDS: PERMETHRIN (NIX CREAM SCALP RINSE) 59 ML 1% BOTTLE TP SCH (11:32)
[2024-08-10 12:46] LABS: BASO % 0.5 % (0-2.0); EOS % 2.2 % (0-4.5); HEMATOCRIT 26.1 % (32.4-45.2); HEMOGLOBIN 8.6 GM/dL (10.7-15.3); LYMPH % 17.1 % (8-40); MCH 29.8 pg (25.7-33.7); MCHC 33.1 g/dl (32.0-36.0); MEAN CELL VOLUME 89.8 fl (80-96); MEAN PLT VOLUME 9.9 fl (7.5-11.1); MONO % 9.5 % (3.8-10.2); NEUT % 70.7 % (42.8-82.8); PLATELET COUNT 63 10^3/uL (134-434); RDW 16.6 % (11.6-15.6); WHITE BLOOD COUNT 3.1 K/mm3 (4.0-10.0)
[2024-08-10 12:56] LABS: POTASSIUM 3.8 mmol/L (3.5-5.1)
[2024-08-10 12:59] LABS: CALCIUM 7.9 mg/dL (8.5-10.1)
[2024-08-10 13:00] LABS: BLOOD UREA NITROGEN 11.2 mg/dL (7-18); MAGNESIUM 1.9 mg/dL (1.8-2.4)
[2024-08-10 13:03] LABS: CREATININE 0.4 mg/dL (0.55-1.3)
[2024-08-10] MEDS: POLYETHYLENE GLYCOL (HEALTHYLAX) 3350 17 GM PACKET PO ONE (17:50)
[2024-08-11] MEDS: LACTULOSE 20 GM/30 ML UDC (FOR ORAL USE ONLY) PO ONE (10:52)
[2024-08-11 11:19] LABS: BASO % 0.7 % (0-2.0); HEMATOCRIT 28.4 % (32.4-45.2); HEMOGLOBIN 9.2 GM/dL (10.7-15.3); LYMPH % 19.3 % (8-40); MCH 29.5 pg (25.7-33.7); MCHC 32.4 g/dl (32.0-36.0); MEAN CELL VOLUME 91.2 fl (80-96); MEAN PLT VOLUME 9.6 fl (7.5-11.1); MONO % 9.7 % (3.8-10.2); NEUT % 68.3 % (42.8-82.8); PLATELET COUNT 71 10^3/uL (134-434); RBC 3.11 M/mm3 (3.60-5.2); RDW 16.8 % (11.6-15.6); WHITE BLOOD COUNT 3.2 K/mm3 (4.0-10.0)
[2024-08-11] MEDS: VANCOMYCIN PREMIX 1.75 GM 1,750 MG/350 ML PIGGYBACK IVPB SCH (14:13)
[2024-08-11] MEDS: SPIRONOLACTONE 25 MG TABLET PO SCH (21:44)
[2024-08-12] MEDS: TORSEMIDE 20 MG TABLET (FP) PO SCH (10:12)
[2024-08-12 10:37] LABS: POTASSIUM 4.1 mmol/L (3.5-5.1)
[2024-08-12 10:40] LABS: BLOOD UREA NITROGEN 13.2 mg/dL (7-18); CALCIUM 7.9 mg/dL (8.5-10.1); MAGNESIUM 1.9 mg/dL (1.8-2.4)
[2024-08-12 10:43] LABS: CREATININE 0.4 mg/dL (0.55-1.3)
[2024-08-12 10:44] LABS: BILIRUBIN,TOTAL 1.4 mg/dL (0.2-1)
[2024-08-12 10:45] LABS: TOT PROT 6.9 g/dl (6.4-8.2)
[2024-08-12] MEDS ORDERED: WITCH HAZEL 50% (TUCKS) 40 PAD/JAR PAD TP PRN (11:23)
[2024-08-12] MEDS: ALPRAZolam 1 MG TABLET PO SCH (11:29)
[2024-08-12] MEDS: LACTULOSE 20 GM/30 ML UDC (FOR ORAL USE ONLY) PO PRN (11:29)
[2024-08-12] MEDS: ZOLPIDEM TARTRATE 5 MG TABLET PO PRN (22:15)
[2024-08-13 09:30] LABS: POTASSIUM 3.5 mmol/L (3.5-5.1)
[2024-08-13 09:33] LABS: ALBUMIN 2.2 g/dl (3.4-5.0); BLOOD UREA NITROGEN 13.3 mg/dL (7-18); CALCIUM 8.1 mg/dL (8.5-10.1); MAGNESIUM 1.9 mg/dL (1.8-2.4)
[2024-08-13 09:36] LABS: CREATININE 0.3 mg/dL (0.55-1.3)
[2024-08-13 09:38] LABS: BILIRUBIN,TOTAL 1.7 mg/dL (0.2-1); TOT PROT 7.1 g/dl (6.4-8.2)
[2024-08-13] MEDS: ERTAPENEM SODIUM 1 GM in SODIUM CHLORIDE 50 ML IVPB SCH (10:44)
[2024-08-13] MEDS: PERMETHRIN (NIX CREAM SCALP RINSE) 59 ML 1% BOTTLE TP SCH (11:21)
[2024-08-14] MEDS: ERTAPENEM SODIUM 1 GM in SODIUM CHLORIDE 50 ML IVPB SCH (05:54)
[2024-08-14] MEDS: VANCOMYCIN PREMIX 1.75 GM 1,750 MG/350 ML PIGGYBACK IVPB SCH (06:20)
[2024-08-14 09:57] LABS: POTASSIUM 3.5 mmol/L (3.5-5.1)
[2024-08-14 10:01] LABS: ALBUMIN 2.4 g/dl (3.4-5.0); BLOOD UREA NITROGEN 14.1 mg/dL (7-18); CALCIUM 8.2 mg/dL (8.5-10.1)
[2024-08-14 10:05] LABS: CREATININE 0.5 mg/dL (0.55-1.3)
[2024-08-14 10:06] LABS: BILIRUBIN,TOTAL 1.4 mg/dL (0.2-1); TOT PROT 7.6 g/dl (6.4-8.2)
[2024-08-14] MEDS: ONDANSETRON 4 MG/2 ML VIAL IVPUSH ONE (12:27)
[2024-08-15 10:36] LABS: POTASSIUM 3.5 mmol/L (3.5-5.1)
[2024-08-15] MEDS: BACITRACIN ZINC 15 GM TUBE TOPICAL OINTMENT TP SCH (10:44)
[2024-08-15 11:08] LABS: CALCIUM 8.2 mg/dL (8.5-10.1)
[2024-08-15 11:09] LABS: ALBUMIN 2.5 g/dl (3.4-5.0)
[2024-08-15 11:11] LABS: BLOOD UREA NITROGEN 16.6 mg/dL (7-18)
[2024-08-15 11:12] LABS: CREATININE 0.6 mg/dL (0.55-1.3)
[2024-08-15 11:13] LABS: BILIRUBIN,TOTAL 1.4 mg/dL (0.2-1); TOT PROT 7.7 g/dl (6.4-8.2)
[2024-08-16] MEDS: IBUPROFEN 600 MG TABLET (FP) PO ONE (00:52)
[2024-08-16] MEDS: DOCUSATE SODIUM 100 MG CAPSULE (FP) PO PRN (21:22)
[2024-08-16] MEDS: ZOLPIDEM TARTRATE 5 MG TABLET PO ONE (21:57)
[2024-08-17 05:02] VITALS: BP 124/69; PULSE 77; TEMP 98.1
== END 2024-08-17 15:00 | disposition home or self-care (01) | DRG 720 ==
LOC: JER 17:06 → JERBED 19:23 → J8W 07-31 14:26
PROVIDERS: ADMIT Internal Medicine; ATTEND Nurse Practitioner Acute Care
DX: A40.9 Streptococcal sepsis, unspecified (principal); D61.818 Other pancytopenia; L03.311 Cellulitis of abdominal wall; E27.40 Unspecified adrenocortical insufficiency; E87.1 Hypo-osmolality and hyponatremia; F11.20 Opioid dependence, uncomplicated; R16.1 Splenomegaly, not elsewhere classified; L03.116 Cellulitis of left lower limb; L97.929 Non-pressure chronic ulcer of unspecified part of left lower leg with unspecified severity; L97.919 Non-pressure chronic ulcer of unspecified part of right lower leg with unspecified severity; K74.60 Unspecified cirrhosis of liver; M86.8X6 Other osteomyelitis, lower leg; F41.9 Anxiety disorder, unspecified; F14.10 Cocaine abuse, uncomplicated; F19.10 Other psychoactive substance abuse, uncomplicated; B18.2 Chronic viral hepatitis C; B85.2 Pediculosis, unspecified
CPT/HCPCS: 36415; 73590-TC-LT-FY; 73630-TC-LT; 73718-TC-LT; 73718-TC-RT; 74177-TC; 80048; 80053; 81003; 82140; 82248; 82533; 82550; 82962; 82977; 83516; 83605; 83735; 83930; 84443; 84703; 85025; 85610; 85651; 86038; 86140; 86160; 86803; 87040; 87077; 87086; 87186; 87389; 87522; 93306-TC; 93971-TC; 93975; 97116-GP; 97161-GP; 99285-25; G0480; J3370; Q9967